=== PATIENT | male | born 1995 | race Caucasian/White ===

== ENCOUNTER 2017-11-07 17:29 | Emergency (ER) | payer MEDICAID ==
[2017-11-07 17:29] VITALS: BMI 16.7
[2017-11-07 17:48] VITALS: RESP 18
[2017-11-07 20:09] VITALS: BP 105/65; PULSE 72; TEMP 98.2
--- NOTE | 2017-11-07 20:26 | ED PDOC ---
Arrival/HPI - General Chief Complaint: Upper Extremity Problem/Injury Time Seen by Provider: 11/07/17 17:35 Historian: Patient - History of Present Illness Narrative History of Present Illness (Text): 11/07/17 20:41 21yr old male presents today with hand fracture. pt states he was seen at [facility] yesterday and had xrays and ct of the right hand. pt states he was told he had a fracture and was placed into splint after reduction. pt states he was supposed to f/u with orthopedist, but didnt. pt state today the splint felt "loose" so he took it off and presents to the ER for evaluation. pt denies numbness, weakness, tingling in the extremity. Took motrin for pain at home with minimal relief. Past Medical History - Provider Review Nursing Documentation Reviewed: Yes - Travel History Have you recently traveled outside [place] w/in the past 3 mons?: No - Infectious Disease Hx of Infectious Diseases: None - Psychiatric Hx Substance Use: No - Surgical History Hx Tonsillectomy: Yes - Anesthesia Hx Anesthesia: No Family/Social History - Physician Review Nursing Documentation Reviewed: Yes Family/Social History: Unknown Family HX Smoking Status: Heavy Smoker > 10 Cigarettes Daily Hx Alcohol Use: Yes Hx Substance Use: No Allergies/Home Meds Allergies/Adverse Reactions: Allergies No Known Allergies Allergy (Verified 06/23/16 00:48) Review of Systems - Review of Systems Constitutional: absent: Fatigue, Fevers Respiratory: absent: SOB, Cough Cardiovascular: absent: Chest Pain, Palpitations Gastrointestinal: absent: Abdominal Pain, Nausea, Vomiting Musculoskeletal: Arthralgias. absent: Back Pain, Neck Pain Skin: absent: Rash, Pruritis Neurological: absent: Headache, Dizziness Psychiatric: absent: Anxiety, Depression Physical Exam Vital Signs Reviewed: Yes Vital Signs Temp Pulse Resp BP Pulse Ox 11/07/17 20:08 98.2 F 72 18 105/65 100 11/07/17 17:44 98.7 F 80 18 127/69 99 Temperature: Afebrile Blood Pressure: Normal Pulse: Regular Respiratory Rate: Normal Appearance: Positive for: Well-Appearing, Non-Toxic, Comfortable Pain Distress: None Mental Status: Positive for: Alert and Oriented X 3 - Systems Exam Head: Present: Atraumatic Mouth: Present: Moist Mucous Membranes Neck: Present: Normal Range of Motion Respiratory/Chest: Present: Clear to Auscultation, Good Air Exchange. No: Respiratory Distress, Accessory Muscle Use Cardiovascular: Present: Regular Rate and Rhythm, Normal S1, S2. No: Murmurs Upper Extremity: Present: Normal ROM, NORMAL PULSES, Tenderness (right hand; + ttp over dorsal aspect of hand over over 4th and 5th metacarpals; no snuff box tenderness. ), Swelling, Neurovascularly Intact, Capillary Refill < 2s. No: Erythema, Deformity Neurological: Present: GCS=15, Speech Normal Skin: Present: Warm, Dry Psychiatric: Present: Alert, Oriented x 3 Medical Decision Making ED Course and Treatment: 11/07/17 20:56 Patient nontoxic well-appearing in no distress with stable vital signs X-rays of the right hand; + fracture seen on lateral view. motrin po Patient placed in volar splint and dorsal splint; pt has f/u schedule with [facility] [place] that was scheduled for today. pt missed appointment but while in the ER rescheduled for this (2days) I discussed all results with patient advised to followup with the orthopedist for the next 2 days. Return if symptoms worsen persist or new symptoms develop stressed the importance of follow-up with the orthopedist on in the clinic. Patient verbalizes understanding of discharge instructions and need for immediate followup. all aspects of this case were discussed the attending of record. Impression: hand fracture Motrin every 6 hours as needed for pain tramadol:1 tablet every 6 hours as needed for moderate to severe pain. may cause drowsiness. Rest, ice, compression, elevation Followup with the orthopedist within the next 2 days Followup with primary care physician within the next 2 days Return if any other concerning symptoms develop 11/07/17 21:06 - RAD Interpretation Radiology Orders: 11/07/17 18:08 HAND RIGHT 3 VIEWS [RAD] Stat - Medication Orders Current Medication Orders: Discontinued Medications Ibuprofen (Motrin Tab) 600 mg PO STAT STA Stop: 11/07/17 18:10 Last Admin: 11/07/17 18:24 Dose: 600 mg MAR Pain/Vitals Document 11/07/17 18:24 [email or web address] (Rec: 11/07/17 18:24 [email or web address] [facility] [place]- OPERATOR1) Pain Reassessment Is This A Pain ReAssessment? No Sleep Is patient sleeping during reassessment? No Presence of Pain Presence of Pain Yes Pain Scale Used Pain Scale Used Numeric Location Left, Right or Bilateral Right Pain Location Body Site Hand Description Constant Intensity 8 Scale Used Numeric Pain Behavior Facial Grimacing Aggravating Factors Changing Position Alleviating Factors Medication Procedures - Splinting Location: right hand Hand-Made Type: fiberglass Splint: volar (volar and dorsal splint applied) Pre-Proc Neuro Vasc Exam: normal Post-Proc Neuro Vasc Exam: normal Disposition/Present on Arrival - Present on Arrival Any Indicators Present on Arrival: No History of DVT/PE: No History of Uncontrolled Diabetes: No Urinary Catheter: No History of Decub. Ulcer: No History Surgical Site Infection Following: None - Disposition Have Diagnosis and Disposition been Completed?: Yes Diagnosis: Fractured hand Disposition: HOME/ ROUTINE Disposition Time: 20:25 Patient Plan: Discharge Patient Problems: Current Active Problems Problem Status Onset Fractured hand Acute Condition: GOOD Discharge Instructions (ExitCare): Hand Fracture (ED) Additional Instructions: Motrin every 6 hours as needed for pain tramadol; 1 tablet every 6 hours as needed for moderate to severe pain. may cause drowsiness. Rest, ice, compression, elevation Followup with the orthopedist within the next 2 days Followup with primary care physician within the next 2 days Return if any other concerning symptoms develop Prescriptions: Ibuprofen [Motrin] 600 mg PO Q6H PRN #20 tab PRN Reason: pain/fever reduction traMADol [Ultram] 50 mg PO Q6H PRN #6 tab PRN Reason: moderate to severe pain Referrals: Gabino Ng MD [Primary Care Provider] - Follow up with primary Alejandro Calhoun MD [Staff Provider] - Follow up with primary Forms: [employer] ([place]ian), WORK NOTE
[2017-11-07 21:06] VITALS: O2SAT 98
--- NOTE | 2017-11-08 08:22 | RAD ---
PROCEDURE: Right Hand Radiographs. HISTORY: hx of right hand fx. removed splint COMPARISON: None. FINDINGS: BONES: There is a small displaced fracture fragment near the base of the 5th metacarpal and the hamate. This is seen best on the lateral view. JOINTS: Normal. No osteoarthritic changes. SOFT TISSUES: Normal. OTHER FINDINGS: None. IMPRESSION: There is a small displaced fracture fragment near the base of the 5th metacarpal and the hamate. This is seen best on the lateral view.
== END 2017-11-07 21:06 | disposition home or self-care (01) ==
LOC: ED 17:29
DX: S62.316D Displaced fracture of base of fifth metacarpal bone, right hand, subsequent encounter for fracture with routine healing (principal); X58.XXXD Exposure to other specified factors, subsequent encounter

== ENCOUNTER 2019-02-04 01:35 | Emergency (ER) | payer MEDICAID ==
[2019-02-04 01:49] VITALS: BMI 17.3
[2019-02-04 01:51] VITALS: TEMP 98.1
[2019-02-04 02:25] LABS: BASO # 0.02 K/mm3 (0.0-2.0); BASO % 0.3 % (0.0-3.0); EOS # 0.3 (0.0-0.7); EOS % 4.5 % (1.5-5.0); HEMOGLOBIN 15.7 g/dL (14.0-18.0); LYMPH # 2.8 (1.2-3.4); LYMPH % 46.8 % (22.0-35.0); MEAN CELL VOLUME 84.8 fl (80.0-105.0); MEAN CORPUSCULAR HEMOGLOBIN 28.5 pg (25.0-35.0); MEAN CORPUSCULAR HGB CONC 33.6 g/dl (31.0-37.0); MEAN PLATELET VOLUME 9.9 fl (7.0-11.0); MONO # 0.6 (0.1-0.6); MONO % 9.5 % (1.0-6.0); RBC 5.51 10^6/uL (3.5-6.1)
[2019-02-04 02:33] LABS: ALB/GLOB RATIO 1.3 (1.1-1.8); ALBUMIN 4.3 g/dL (3.0-4.8); ALT/SGPT 13 U/L (7-56); AST/SGOT 22 U/L (17-59); BLOOD UREA NITROGEN 13 mg/dL (7-21); CALCIUM 8.9 mg/dL (8.4-10.5); GFR NON-AFRICAN AMERICAN > 60
--- NOTE | 2019-02-04 02:40 | ED PDOC ---
Arrival/HPI - General Historian: Patient - History of Present Illness Narrative History of Present Illness (Text): Patient is a 23 year old male with no significant medical history presenting with chief complaint of intermittent chest pain. Chest pain is described as sharp and stabbing, radiating to the back. Pain began when patient was sitting and smoking a cigarette. Admits to shortness of breath. Denies fevers, chills, nausea, vomiting, abdominal pain, diarrhea, dysuria. \ Time/Duration: Prior to Arrival Symptom Onset: Sudden Symptom Course: Unchanged Quality: Stabbing Activities at Onset: Rest <Lili Morelandmaru Toure - Last Filed: 02/04/19 03:27> <Chato Ford - Last Filed: 02/04/19 04:47> - General Chief Complaint: Chest Pain Past Medical History - Provider Review Nursing Documentation Reviewed: Yes - Infectious Disease Hx of Infectious Diseases: None - Pulmonary Hx Respiratory Disorders: Yes (Patent Ductus Arteriosus) - Musculoskeletal/Rheumatological Hx Musculoskeletal Disorders: Yes Hx Fractures: Yes (right hand) - Psychiatric Hx Psychophysiologic Disorder: No Hx Substance Use: No - Surgical History Hx Tonsillectomy: Yes - Anesthesia Hx Anesthesia: No <Lili Morelandmaru Toure - Last Filed: 02/04/19 03:27> Family/Social History - Physician Review Nursing Documentation Reviewed: Yes Family/Social History: No Known Family HX Smoking Status: Heavy Smoker > 10 Cigarettes Daily Hx Alcohol Use: Yes Frequency of alcohol use: Socially Hx Substance Use: No <MorelandLilimaru Toure - Last Filed: 02/04/19 03:27> Allergies/Home Meds <Farhat Moreland - Last Filed: 02/04/19 03:27> <Chato Ford - Last Filed: 02/04/19 04:47> Allergies/Adverse Reactions: Allergies No Known Allergies Allergy (Verified 06/23/16 00:48) Review of Systems - Physician Review All systems were reviewed & negative as marked: Yes - Review of Systems Constitutional: Normal Respiratory: SOB Cardiovascular: Chest Pain Gastrointestinal: Normal <Lili Morelandmaru Toure - Last Filed: 02/04/19 03:27> Physical Exam Vital Signs Reviewed: Yes Vital Signs Temp Pulse Pulse Resp BP BP Pulse Ox 02/04/19 01:57 81 129/77 02/04/19 01:44 98.1 F 73 18 129/77 100 Temperature: Afebrile Blood Pressure: Normal Pulse: Regular Respiratory Rate: Normal Appearance: Positive for: Well-Appearing, Comfortable Pain Distress: None Mental Status: Positive for: Alert and Oriented X 3 - Systems Exam Head: Present: Atraumatic, Normocephalic Extroacular Muscles: Present: EOMI Conjunctiva: Present: Normal Mouth: Present: Moist Mucous Membranes Respiratory/Chest: Present: Clear to Auscultation, Good Air Exchange. No: Respiratory Distress, Accessory Muscle Use Cardiovascular: Present: Regular Rate and Rhythm, Normal S1, S2. No: Tachycardic Abdomen: Present: Normal Bowel Sounds. No: Tenderness, Distention Neurological: Present: GCS=15, CN II-XII Intact, Speech Normal Skin: Present: Warm, Dry, Rashes, Normal Color Psychiatric: Present: Alert, Oriented x 3 <Farhat Moreland - Last Filed: 02/04/19 03:27> Vital Signs Temp Pulse Pulse Resp BP BP Pulse Ox 02/04/19 01:57 81 129/77 02/04/19 01:44 98.1 F 73 18 129/77 100 <Chato Ford - Last Filed: 02/04/19 04:47> Medical Decision Making ED Course and Treatment: Impression: 23 year old male with chest pain Plan: - CBC, CMP - EKG, troponin - CXR - Reassess and disposition Prior Visits: Notes and results from previous visits were reviewed. Progress Notes: Patient resting comfortably, hemodynamically stable. Reports improvement in pain. Labs and imaging reviewed. Patient stable for discharge. Counseled on smoking cessation. Patient in agreement with discharge plan of management. - Lab Interpretations Lab Results: Total Bilirubin 0.4 mg/dL (0.2-1.3) 02/04/19 02:15 AST 22 U/L (17-59) 02/04/19 02:15 ALT 13 U/L (7-56) 02/04/19 02:15 Alkaline Phosphatase 55 U/L (38-126) 02/04/19 02:15 Total Protein 7.6 g/dL (5.8-8.3) 02/04/19 02:15 Albumin 4.3 g/dL (3.0-4.8) 02/04/19 02:15 Globulin 3.4 gm/dL 02/04/19 02:15 Albumin/Globulin Ratio 1.3 (1.1-1.8) 02/04/19 02:15 I have reviewed the lab results: Yes - EKG Interpretation Interpreted by ED Physician: Yes Type: 12 lead EKG <Farhat Moreland - Last Filed: 02/04/19 03:27> ED Course and Treatment: Impression: Pt seen and evaluated with medical reimbursement manager. Aware and agree with HPI, clinical findings, plan, and management. Pt, with no significant past medical history, presented for intermittent chest pain radiating to back and some shortness of breath. Plan: -- EKG -- CXR -- Labs, troponin -- Reassess and disposition - Lab Interpretations Lab Results: Troponin I < 0.01 ng/mL 02/04/19 02:15 Total Bilirubin 0.4 mg/dL (0.2-1.3) 02/04/19 02:15 AST 22 U/L (17-59) 02/04/19 02:15 ALT 13 U/L (7-56) 02/04/19 02:15 Alkaline Phosphatase 55 U/L (38-126) 02/04/19 02:15 Total Protein 7.6 g/dL (5.8-8.3) 02/04/19 02:15 Albumin 4.3 g/dL (3.0-4.8) 02/04/19 02:15 Globulin 3.4 gm/dL 02/04/19 02:15 Albumin/Globulin Ratio 1.3 (1.1-1.8) 02/04/19 02:15 - RAD Interpretation Radiology Orders: 02/04/19 02:40 CHEST PORTABLE [RAD] Stat <Chato Ford - Last Filed: 02/04/19 04:47> - PA / CARDIOPULMONARY SUPERVISOR / Resident Statement / has reviewed & agrees with the documentation as recorded. / has examined the patient and agrees with the treatment plan. <Chato Ford - Last Filed: 02/04/19 04:47> Disposition/Present on Arrival - Present on Arrival Any Indicators Present on Arrival: No History of DVT/PE: No History of Uncontrolled Diabetes: No Urinary Catheter: No History of Decub. Ulcer: No History Surgical Site Infection Following: None - Disposition Have Diagnosis and Disposition been Completed?: Yes Disposition Time: : Patient Plan: Discharge <Farhat Moreland - Last Filed: 02/04/19 03:27> <Chato Ford - Last Filed: 02/04/19 04:47> - Disposition Diagnosis: Chest pain Disposition: HOME/ ROUTINE Condition: STABLE Discharge Instructions (ExitCare): Chest Pain (DC), Quitting Smoking, Chest Pain (ED) Additional Instructions: Follow up with your primary medical doctor within one week. Please stop smoking. Return to ED if symptoms return or worsen. Referrals: Gabino Ng MD [Staff Provider] - Follow up with primary [facility] - Follow up with primary Forms: [id number] (Beninese)
[2019-02-04 02:44] LABS: TROPONIN I < 0.01 ng/mL
[2019-02-04 03:30] VITALS: BP 119/69; PULSE 74; RESP 16; O2SAT 99
--- NOTE | 2019-02-04 09:25 | CARD ---
APPROVED REPORT Date of service: 02/04/2019 EKG Measurement Heart [id number] <Conclusion> Normal sinus rhythm Rightward axis Borderline ECG
--- NOTE | 2019-02-04 09:37 | RAD ---
Date of service: 02/04/2019 HISTORY: cp COMPARISON: No prior. TECHNIQUE: 1 view obtained. FINDINGS: LUNGS: No active pulmonary disease. PLEURA: No significant pleural effusion identified, no pneumothorax apparent. CARDIOVASCULAR: No aortic atherosclerotic calcification present. Normal cardiac size. No pulmonary vascular congestion. OSSEOUS STRUCTURES: No significant abnormalities. VISUALIZED UPPER ABDOMEN: Normal. OTHER FINDINGS: None. IMPRESSION: No active disease.
== END 2019-02-04 03:30 | disposition home or self-care (01) ==
LOC: ED 01:35
DX: R07.9 Chest pain, unspecified (principal)